=== PATIENT | male | born 1985 | race Caucasian/White ===

== ENCOUNTER 2019-12-27 09:40 | Emergency (ER) | payer SELFPAY ==
--- NOTE | 2019-12-27 10:33 | ER Document Report ---
ED Respiratory Problem - General Chief Complaint: Cough Stated Complaint: COUGH Time Seen by Provider: 12/27/19 10:06 Notes: CHIEF COMPLAINT: Cough for 2 days HPI: 34-year-old male presenting for slightly dry cough for the last 2 days without fever. Subjectively felt mildly short of breath today. Does have history of sinus problems but was not sure if this might be allergies. 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 States he does wear gloves doing this. Denies other complaints at this time. No chest pain. ROS: See HPI - all other systems were reviewed and are otherwise negative Constitutional: no fever Eyes: no drainage, no blurred vision ENT: no runny nose, no sore throat Cardiovascular: no chest pain Resp: + SOB, + cough GI: no vomiting, no diarrhea, no abdominal pain : no dysuria Integumentary: no rash Allergy: no hives Musculoskeletal: no extremity pain or swelling Neurological: no numbness/tingling, no weakness MEDICATIONS: I agree with the patient medications as charted by the RN. ALLERGIES: I agree with the allergies as charted by the RN. PAST MEDICAL HISTORY/PAST SURGICAL HISTORY: Reviewed and agree as charted by RN. SOCIAL HISTORY: Reviewed and agree as charted by RN. FAMILY HISTORY: No significant familial comorbid conditions directly related to patient complaint EXAM: Reviewed vital signs as charted by RN. CONSTITUTIONAL: Alert and oriented and responds appropriately to questions. Well-appearing; well-nourished HEAD: Normocephalic; atraumatic EYES: PERRL; Conjunctivae clear, sclerae non-icteric ENT: normal nose; no rhinorrhea; moist mucous membranes; pharynx without lesions noted, no uvula edema or deviation, no tonsillar hypertrophy, phonation normal NECK: Supple without meningismus; non-tender; no cervical lymphadenopathy, no masses CARD: RRR; no murmurs, no clicks, no rubs, no gallops; symmetric distal pulses RESP: Normal chest excursion without splinting or tachypnea; breath sounds clear and equal bilaterally; no wheezes, no rhonchi, no rales, pulse oximetry 99% on room air not hypoxic. Does not become dyspneic with speaking. ABD/GI: Normal bowel sounds; non-distended; soft, non-tender, no rebound, no guarding; no palpable organomegaly or masses. BACK: The back appears normal and is non-tender to palpation, there is no CVA tenderness EXT: Normal ROM in all joints; non-tender to palpation; no cyanosis, no effusions, no edema SKIN: Normal color for age and race; warm; dry; good turgor; no acute lesions noted NEURO: Moves all extremities equally; Motor and sensory function intact PSYCH: The patient's mood and manner are appropriate. Grooming and personal hygiene are appropriate. MDM: 34-year-old male presenting for slightly dry cough over the last 2 days, no fever, subjective shortness of breath but does not become dyspneic here is not hypoxic. Low suspicion for pneumonia at this time. Patient's work does place him possibly at risk for contact with COVID. Will obtain COVID testing. Given the policy of the hospital they will also obtain flu testing. Will obtain a chest x-ray given the complaint of cough if negative for acute findings patient will be discharged home. Patient is aware that he must self quarantine for 14 days or until he has a negative test - Related Data Allergies/Adverse Reactions: No Known Allergies Allergy (Verified 12/27/19 10:00) Past Medical History - Social History Smoking Status: Former Smoker Frequency of alcohol use: None Drug Abuse: None Family History: Reviewed & Not Pertinent Patient has suicidal ideation: No Patient has homicidal ideation: No Physical Exam - Vital signs Vitals: Temp 98.2 F 12/27/19 09:41 Course - Re-evaluation Re-evalutation: 12/27/19 10:50 Chest x-ray on my review does not reveal evidence of infiltrate. Will discharge to quarantine as previously discussed - Vital Signs Vital signs: Temp Pulse Resp BP Pulse Ox 98.2 F 12/27/19 09:41 Discharge - Discharge Clinical Impression: Cough Condition: Stable Disposition: HOME, SELF-CARE Instructions: Cough Suppressant & Expectorant Medications Additional Instructions: Make sure to take Claritin or Zyrtec to help with allergy symptoms. Make sure to take Claritin or Zyrtec to help with allergy symptoms. You were tested for COVID today. You are considered a person under investigation at this point. Make sure you self quarantine for the next 14 days or until you have a negative test as discussed
--- NOTE | 2019-12-27 11:18 | RADIOLOGY REPORT (SQ) ---
EXAM DESCRIPTION: CHEST SINGLE VIEW IMAGES COMPLETED DATE/TIME: 12/27/2019 10:52 am REASON FOR STUDY: cough COMPARISON: None. NUMBER OF VIEWS: One view. TECHNIQUE: Single frontal radiographic view of the chest acquired. LIMITATIONS: None. FINDINGS: LUNGS AND PLEURA: No opacities, masses or pneumothorax. No pleural effusion. MEDIASTINUM AND HILAR STRUCTURES: No masses. Contour normal. HEART AND VASCULAR STRUCTURES: Heart normal in size. Normal vasculature. BONES: No acute findings. HARDWARE: None in the chest. OTHER: No other significant finding. IMPRESSION: NO SIGNIFICANT RADIOGRAPHIC FINDING IN THE CHEST. TECHNICAL DOCUMENTATION: JOB ID: [id number] [email or web address]- All Rights Reserved Reading location - IP/workstation name: [email or web address]
== END 2019-12-27 11:00 | disposition home or self-care (01) ==
LOC: ER 09:40
DX: R05 Cough (principal); R06.02 Shortness of breath; Z20.828 Contact with and (suspected) exposure to other viral communicable diseases; Z87.891 Personal history of nicotine dependence
CPT/HCPCS: 71045; 87635; 99283